=== PATIENT | female | born 1955 | race Caucasian/White ===

== ENCOUNTER 2022-01-26 11:18 | Outpatient (CLI) | payer MEDICARE, SELFPAY ==
--- NOTE | 2022-01-26 11:30 | CRLHL7_ITS ---
For Patients: As a result of the Century Cures Act, medical imaging exams and procedure reports are released immediately into your electronic medical record. You may view this report before your referring provider. If you have questions, please contact your health care provider. BILATERAL MAMMOGRAM WITH COMPUTER-AIDED DETECTION TECHNIQUE: CC and MLO views were obtained. These mammographic images have been obtained using full-field digital technique. These mammographic images were interpreted with the benefit of computer-aided detection. COMPARISON FILM: 01/25/2021, 01/31/2020, 01/15/2019. FINDINGS: There are scattered areas of fibroglandular density IMPRESSION: There is no radiographic evidence for malignancy. ASSESSMENT: BI-RADS Category 1: Negative RECOMMENDATION: Routine screening mammogram in 1 year. A lay language report of this examination will be provided to the patient. Chano Cifuentes M.D. Diagnostic Radiologist [email or web address] SHEMAR/Dictated by: Chano Cifuentes MD @ 01/26/2022 12:54:00 PM (Electronically Signed)
== END 2022-01-26 11:19 | disposition home or self-care (01) ==
LOC: MAMMO 11:27
PROVIDERS: PCP Internal Medicine; Visit Provider Internal Medicine
DX: Z12.31 Encounter for screening mammogram for malignant neoplasm of breast (principal)
CPT/HCPCS: 77063; 77067

== ENCOUNTER 2022-08-10 07:47 | Outpatient (CLI) | payer MEDICARE, SELFPAY ==
[2022-08-10 10:09] LABS: Chloride* 107 mmol/L (96-114)
[2022-08-10 10:10] LABS: Potassium* 5.2 mmol/L (3.6-5.1); Sodium* 138 mmol/L (135-149)
[2022-08-10 10:12] LABS: Cholesterol* 158 mg/dL (90-199)
[2022-08-10 10:13] LABS: Blood Urea Nitrogen* 22 mg/dL (7-30); Carbon Dioxide* 27 mmol/L (20-32); Creatinine* 0.8 mg/dL (0.5-1.5); Estimated Glomerular Filt Rate 80 ml/min; Glucose* 93 mg/dL (60-115); Triglycerides* 149 mg/dL (40-149)
[2022-08-10 10:14] LABS: HDL Cholesterol* 71 mg/dL (>=50); LDL Cholesterol Calculated 57 mg/dL (<100)
== END 2022-08-10 07:48 | disposition home or self-care (01) ==
LOC: NFLDREF 07:48
PROVIDERS: PCP Internal Medicine; Visit Provider Internal Medicine
DX: I63.9 Cerebral infarction, unspecified (principal); I67.9 Cerebrovascular disease, unspecified
CPT/HCPCS: 80048; 80061

== ENCOUNTER 2022-08-31 07:19 | Day surgery (SDC) | payer MEDICARE, BC, SELFPAY ==
[2022-08-31] MEDS: KETOROLAC OPHTH 0.5% 1 DROP EYE-RIGHT ×2 (07:35→07:40)
[2022-08-31] MEDS: TETRACAINE 0.5% OPHTH 1 DROP EYE-RIGHT ×2 (07:35→07:40)
[2022-08-31 07:45] VITALS: BP 177/77; PULSE 65; RESP 16; TEMP 36.8; O2SAT 95
--- NOTE | 2022-08-31 07:45 | SUR.PREOP ---
HOME COVID TEST NEGATIVE
[2022-08-31] MEDS: SODIUM CHLORIDE 0.9 % (FLUSH) 10 ML SYRINGE IVF (07:50)
[2022-08-31 07:54] VITALS: BMI 29.0
[2022-08-31] MEDS: TETRACAINE 0.5% OPHTH 2 DROP EYE-RIGHT (08:35)
[2022-08-31] MEDS: BALANCED SALT IRRIG SOLN 15 ML EYE-RIGHT (08:40)
--- NOTE | 2022-08-31 09:08 | W.ANESCHARGE ---
Anesthesia Charges Start Date/Time Anesthesia Start Date: 08/31/22 Anesthesia Start Time: 08:32 Stop Date/Time Anesthesia Stop Date: 08/31/22 Anesthesia Stop Time: 09:09
--- NOTE | 2022-08-31 09:14 | W.ANESCHARGE ---
Anesthesia Charges Start Date/Time Anesthesia Start Date: 08/31/22 Anesthesia Start Time: 08:32 Stop Date/Time Anesthesia Stop Date: 08/31/22 Anesthesia Stop Time: 09:09
[2022-08-31 09:19] VITALS: BP 145/76; PULSE 60; RESP 16; TEMP 36.5; O2SAT 97
--- NOTE | 2022-08-31 09:54 | W.PM.OPTPROC ---
Procedure Note Date of procedure: 08/31/22 Will [facility] bill your pro fee for this procedure?: Yes Procedure Description: SURGEON: Radha Forde MD PREOPERATIVE DIAGNOSIS: Nuclear sclerotic cataract, right eye. POSTOPERATIVE DIAGNOSIS: Nuclear sclerotic cataract, right eye. NAME OF OPERATION: Phacoemulsification of cataract with posterior chamber intraocular lens implantation in the right eye. ANESTHESIA: Topical. ESTIMATED BLOOD LOSS: Less than 2 cc. COMPLICATIONS: None. PATHOLOGY SPECIMEN: None. INDICATIONS: See consult note for details. The risks, benefits and alternatives of the procedure were explained to the patient, who elected to proceed and signed informed consent to do so. PROCEDURE: The patient was brought to the pre-holding area where the right eye was identified as the operative eye. I placed my initials above this eye. The patient received eye drops consisting of 0.5% tetracaine, 1% tropicamide, 10% phenylephrine, and 0.5% ketorolac. The patient was then brought to the operating room where the right eye was again identified as the operative eye. The eye was prepped with Betadine and draped in the usual sterile ophthalmic fashion. A #15 super-sharp blade was used to create a paracentesis site. 1% non-preserved intracameral lidocaine was injected into the anterior chamber. Endocoat was injected into the anterior chamber. A 2.4 mm keratome was used to create a three-plane self-sealing incision 1 mm anterior to the temporal limbus. A cystotome was used to create an anterior capsular leaflet. The Utrata forceps were used to extend this to form a continuous curvilinear capsulorrhexis. Hydrodissection was performed. The cataract was removed with phacoemulsification using the [id number]-mdaxeys technique. The irrigation and aspiration tip was used to remove the remaining cortex. Healon was injected into the capsular bag. An DOUG ZCB00 intraocular lens of 21.0 diopters was injected into the capsular bag. The irrigation and aspiration tip was used to remove the remaining viscoelastic. Balanced salt solution on a cannula was used to hydrate the wound, and the wound was found to be watertight. The pupil was noted to be round. DISPOSITION: The patient was taken to the recovery room and discharged to home in stable condition. The patient was instructed to call me or go to the emergency department with any sudden change, including dramatic loss of vision, severe pain in the eye or eyebrow region, nausea, or vomiting. The patient will follow up in the clinic tomorrow morning. Surgeon: Radha Forde MD
== END 2022-08-31 09:32 | disposition home or self-care (01) ==
PROVIDERS: PCP Internal Medicine; Visit Provider Ophthalmology
PROC: (CPT 66984; principal; 2022-08-31 07:30)
DX: H25.11 Age-related nuclear cataract, right eye (principal)
CPT/HCPCS: 66984; 00142; A9270; J2250; J3010; V2632

== ENCOUNTER 2022-09-14 09:31 | Day surgery (SDC) | payer MEDICARE, BC, SELFPAY ==
[2022-09-14] MEDS: KETOROLAC OPHTH 0.5% 1 DROP EYE-LEFT ×3 (09:47→10:01)
[2022-09-14] MEDS: TETRACAINE 0.5% OPHTH 1 DROP EYE-LEFT ×2 (09:47→09:55)
[2022-09-14 09:56] VITALS: BP 180/77; PULSE 60; RESP 16; TEMP 36.7; O2SAT 97
[2022-09-14 09:58] VITALS: BMI 29.0
[2022-09-14] MEDS: SODIUM CHLORIDE 0.9 % (FLUSH) 10 ML SYRINGE IVF (10:03)
--- NOTE | 2022-09-14 10:05 | SUR.PREOP ---
Patient provided home covid negative results to RN. The eye drops brought by the patient (Ketorolac and Prednisolone) are examined and I have determined they are labeled by the patient's pharmacy for this patient as prescribed by the surgeon. The bottles are intact, recently obtained and appear to be correct.
[2022-09-14] MEDS: TETRACAINE 0.5% OPHTH 2 DROP EYE-LEFT (10:43)
--- NOTE | 2022-09-14 10:47 | W.ANESCHARGE ---
Anesthesia Charges Start Date/Time Anesthesia Start Date: 09/14/22 Anesthesia Start Time: 10:41 Stop Date/Time Anesthesia Stop Date: 09/14/22 Anesthesia Stop Time: 11:15
[2022-09-14] MEDS: BALANCED SALT IRRIG SOLN 15 ML EYE-LEFT (10:48)
--- NOTE | 2022-09-14 11:10 | P.OPTPRC_ITS ---
Procedure Note Date of procedure: 09/14/22 Will [facility] bill your pro fee for this procedure?: Yes Procedure Description: SURGEON: Radha Forde MD PREOPERATIVE DIAGNOSIS: Nuclear sclerotic cataract, left eye. POSTOPERATIVE DIAGNOSIS: Nuclear sclerotic cataract, left eye. NAME OF OPERATION: Phacoemulsification of cataract with posterior chamber intraocular lens implantation in the left eye. ANESTHESIA: Topical. ESTIMATED BLOOD LOSS: Less than 2 cc. COMPLICATIONS: None. PATHOLOGY SPECIMEN: None. INDICATIONS: See consult note for details. The risks, benefits and alternatives of the procedure were explained to the patient, who elected to proceed and sign ed informed consent to do so. PROCEDURE: The patient was brought to the pre-holding area where the left eye was identified as the operative eye. I placed my initials above this eye. The patient received eye drops consisting of 0.5% tetracaine, 1% tropicamide, 10% phenylephrine, and 0.5% ketorolac. The patient was then brought to the operating room where the left eye was again identified as the operative eye. The eye was prepped with Betadine and draped in the usual sterile ophthalmic fashion. A #15 super-sharp blade was used to create a paracentesis site. 1% non-preserved intracameral lidocaine was injected into the anterior chamber. Endocoat was injected into the anterior chamber. A 2.4 mm keratome was used to create a three-plane self-sealing incision 1 mm anterior to the temporal limbus. A cystotome was used to create an anterior capsular leaflet. The Utrata forceps were used to extend this to form a continuous curvilinear capsulorrhexis. Hydrodissection was performed. The cataract was removed with phacoemulsification using the xcxinm-etu-mdyxofu technique. The irrigation and aspiration tip was used to remove the remaining cortex. Healon was injected into the capsular bag. An DOUG ZCB00 intraocular lens of 22.0 diopters was injected into the capsular bag. The irrigation and aspiration tip was used to remove the remaining viscoelastic. Balanced salt solution on a cannula was used to hydrate the wound, and the wound was found to be watertight. The pupil was noted to be round. DISPOSITION: The patient was taken to the recovery room and discharged to home in stable condition. The patient was instructed to call me or go to the emergency department with any sudden change, including dramatic loss of vision, severe pain in the eye or eyebrow region, nausea, or vomiting. The patient will follow up in the clinic tomorrow morning. Surgeon: Radha Forde MD
[2022-09-14 11:13] VITALS: BP 144/75; PULSE 58; RESP 16; TEMP 36.6; O2SAT 98
== END 2022-09-14 11:35 | disposition home or self-care (01) ==
LOC: OR 09:32
PROVIDERS: PCP Internal Medicine; Visit Provider Ophthalmology
PROC: (CPT 66984; principal; 2022-09-14 09:45)
DX: H25.12 Age-related nuclear cataract, left eye (principal)
CPT/HCPCS: 66984; 142; A9270; J2250; J3010; V2632

== ENCOUNTER 2023-02-13 07:27 | Outpatient (CLI) | payer MEDICARE, BC, SELFPAY ==
--- NOTE | 2023-02-13 07:45 | CRLHL7_ITS ---
For Patients: As a result of the Century Cures Act, medical imaging exams and procedure reports are released immediately into your electronic medical record. You may view this report before your referring provider. If you have questions, please contact your health care provider. BILATERAL SCREENING MAMMOGRAM WITH COMPUTER-AIDED DETECTION TECHNIQUE: CC and MLO views were obtained. These mammographic images have been obtained using full-field digital technique. These mammographic images were interpreted with the benefit of computer-aided detection. COMPARISON FILM: 01/26/22, 01/25/21, 01/31/20. FINDINGS: There are scattered areas of fibroglandular density. IMPRESSION: There is no radiographic evidence for malignancy. ASSESSMENT: BI-RADS Category 1: Negative RECOMMENDATION: Routine screening mammogram in 1 year. A lay language report of this examination will be provided to the patient. CHANO MCKINNEY M.D. Diagnostic Radiologist [email or web address] Transcribed: 02/13/2023, 1:[address]/Dictated by: Chano Mckinney MD @ 02/13/2023 9:05:00 AM (Electronically Signed)
== END 2023-02-13 07:28 | disposition home or self-care (01) ==
PROVIDERS: PCP Internal Medicine; Visit Provider Internal Medicine
DX: Z12.31 Encounter for screening mammogram for malignant neoplasm of breast (principal)
CPT/HCPCS: 77063; 77067

== ENCOUNTER 2023-08-14 07:35 | Outpatient (CLI) | payer MEDICARE, BC, SELFPAY | END 2023-08-14 07:36 | disposition home or self-care (01) | LOC: NFLDREF 08-15 18:59 | PROVIDERS: PCP Internal Medicine; Referring Provider Internal Medicine; Visit Provider Internal Medicine | DX: Z86.73 Personal history of transient ischemic attack (TIA), and cerebral infarction without residual deficits (principal); Z79.899 Other long term (current) drug therapy; Z79.82 Long term (current) use of aspirin | CPT/HCPCS: 80048; 80061 ==

== ENCOUNTER 2024-02-15 08:57 | Outpatient (CLI) | payer MEDICARE, BC, SELFPAY ==
--- NOTE | 2024-02-15 09:15 | CRLHL7_ITS ---
For Patients: As a result of the Century Cures Act, medical imaging exams and procedure reports are released immediately into your electronic medical record. You may view this report before your referring provider. If you have questions, please contact your health care provider. BILATERAL SCREENING MAMMOGRAM WITH COMPUTER-AIDED DETECTION AND TOMOSYNTHESIS TECHNIQUE: CC and MLO views were obtained. These mammographic images have been obtained using full-field digital technique. These mammographic images were interpreted with the benefit of computer-aided detection. Breast tomosynthesis was used in this interpretation. COMPARISON FILM: 02/14/24, 01/26/22, 01/25/21. FINDINGS: There are scattered areas of fibroglandular density. IMPRESSION: There is no radiographic evidence for malignancy. ASSESSMENT: BI-RADS Category 1: Negative RECOMMENDATION: Routine screening mammogram in 1 year. A lay language report of this examination will be provided to the patient. CHANO MCKINNEY M.D. Diagnostic Radiologist [email or web address] Transcribed: 2:[address]/Dictated by: Chano Mckinney MD @ 02/16/2024 10:36:00 AM (Electronically Signed)
== END 2024-02-15 08:58 | disposition home or self-care (01) ==
LOC: MAMMO 08:58
PROVIDERS: PCP Internal Medicine; Visit Provider Internal Medicine
DX: Z12.31 Encounter for screening mammogram for malignant neoplasm of breast (principal)
CPT/HCPCS: 77063; 77067

== ENCOUNTER 2024-08-23 07:30 | Outpatient (CLI) | payer MEDICARE, BC, SELFPAY | END 2024-08-23 07:31 | disposition home or self-care (01) | LOC: NFLDREF 08-29 16:49 | PROVIDERS: PCP Internal Medicine; Referring Provider Internal Medicine; Visit Provider Internal Medicine | DX: E78.5 Hyperlipidemia, unspecified (principal); Z86.73 Personal history of transient ischemic attack (TIA), and cerebral infarction without residual deficits | CPT/HCPCS: 80048; 80061 ==

== ENCOUNTER 2024-12-12 09:51 | Outpatient (CLI) | payer MEDICARE, BC, SELFPAY ==
--- NOTE | 2024-12-12 11:36 | P.ANES_ITS ---
Anesthesia Charges Start Date/Time Anesthesia Start Date: 12/12/24 Anesthesia Start Time: 11:08 Stop Date/Time Anesthesia Stop Date: 12/12/24 Anesthesia Stop Time: 11:36 Summary Extremes of Age - Over 70 or under 1: VICE PRESIDENT OF RECRUITING Coding CPT Codes CPT Codes: ANES LWR INTST NDSC NOS - 13061 ([id number]) P3 - PATIENT W/SEVERE SYS DISEASE, QX - VICE PRESIDENT OF RECRUITING SVC W/ MD MED DIRECTION, QK - FROZEN MEAT CUTTER 2-4 CNCRNT ANES PROC Additional Codes: Summary - Extremes of Age - Over 70 or under 1: VICE PRESIDENT OF RECRUITING ([id number])
--- NOTE | 2024-12-12 11:36 | W.ANESCHARGE ---
Anesthesia Charges Start Date/Time Anesthesia Start Date: 12/12/24 Anesthesia Start Time: 11:08 Stop Date/Time Anesthesia Stop Date: 12/12/24 Anesthesia Stop Time: 11:36 Summary Extremes of Age - Over 70 or under 1: TILE EDGER Coding CPT Codes CPT Codes: ANES LWR INTST NDSC NOS - 53472 ([id number]) P3 - PATIENT W/SEVERE SYS DISEASE, QX - TILE EDGER SVC W/ MD MED DIRECTION, QK - MEMBER SERVICES REPRESENTATIVE 2-4 CNCRNT ANES PROC Additional Codes: Summary - Extremes of Age - Over 70 or under 1: TILE EDGER ([id number])
--- NOTE | 2024-12-12 11:46 | W.ANESCHARGE ---
Anesthesia Charges Start Date/Time Anesthesia Start Date: 12/12/24 Anesthesia Start Time: 11:08 Stop Date/Time Anesthesia Stop Date: 12/12/24 Anesthesia Stop Time: 11:36 Summary Extremes of Age - Over 70 or under 1: MDA Coding CPT Codes CPT Codes: ANES LWR INTST NDSC NOS - 68715 ([id number]) QK - BANK TELLER MACHINE MECHANIC 2-4 CNCRNT ANES PROC, QX - FLATWORK WASHER SVC W/ MD MED DIRECTION, P3 - PATIENT W/SEVERE SYS DISEASE Additional Codes: Summary - Extremes of Age - Over 70 or under 1: MDA ([id number])
== END 2024-12-12 09:52 | disposition home or self-care (01) ==
LOC: OP CLINIC 09:53
PROVIDERS: PCP Internal Medicine; Visit Provider Surgery
DX: Z12.11 Encounter for screening for malignant neoplasm of colon (principal); Z80.0 Family history of malignant neoplasm of digestive organs; Z86.0109 Personal history of other colon polyps; D12.0 Benign neoplasm of cecum; D12.8 Benign neoplasm of rectum
CPT/HCPCS: 00811; 45385; 88305; 99100; J2704

== ENCOUNTER 2025-02-18 07:57 | Outpatient (CLI) | payer MEDICARE, BC, SELFPAY ==
--- NOTE | 2025-02-18 08:15 | CRLHL7_ITS ---
For Patients: As a result of the Century Cures Act, medical imaging exams and procedure reports are released immediately into your electronic medical record. You may view this report before your referring provider. If you have questions, please contact your health care provider. INDICATION: VILATERAL SCREENING MAMMOGRAM, ASYMPTOMATIC 69 Y/O FEMALE COMPARISON: 02/15/2024, 02/13/2023, 01/26/2022 TECHNIQUE: Digital mammogram in CC and MLO projections including computer-aided detection (CAD) and tomosynthesis. BREAST COMPOSITION: The breasts are almost entirely fatty. FINDINGS: No suspicious findings. ASSESSMENT: BI-RADS 2 Benign RECOMMENDATION: Annual screening mammogram. A lay language report of this examination will be provided to the patient. Dictated by: Chano Cifuentes MD @ 02/19/2025 08:40:40 (Electronically Signed)
== END 2025-02-18 07:58 | disposition home or self-care (01) ==
LOC: MAMMO 07:58
PROVIDERS: PCP Internal Medicine; Visit Provider Internal Medicine
DX: Z12.31 Encounter for screening mammogram for malignant neoplasm of breast (principal)
CPT/HCPCS: 77063; 77067